=== PATIENT | female | born 1985 | race Caucasian/White ===

== ENCOUNTER 2017-02-03 07:30 | Inpatient (IN) | payer BC ==
[2017-02-03] VITALS (27 sets, daily range): BP systolic 108–175; BP diastolic 56–88; PULSE 68–102; TEMP 98.3–98.7
[~2017-02-03] VITALS: Ht 162.6 cm; Wt 94.1 kg
[~2017-02-03 07:30] MED LIST: FERROUS SU325 MG/TAB PO; INDERAL 20MG20 MG PO; LANOXIN 0.25M0.25 MG PO; MOTRIN 800800 MG/TAB PO; PERCOCET 325 MG1 TA2 PO; PROTONIX20 MG PO
[2017-02-03] MEDS ORDERED: PROTONIX20 MG PO (07:45)
[2017-02-03] MEDS ORDERED: ZOLOFT 50MG50 MG PO (07:45)
[2017-02-03] MEDS ORDERED: PRENATAL1 TA7 PO (07:46)
[2017-02-03 08:32] LABS: BASO # 0.1 (0.0-0.2); BASO % 0.4 % (0.0-2.0); EOS # 0.1 (0.0-0.7); EOS % 0.6 % (0-4.0); GRAN # 7.5 (1.4-6.5); GRAN % 67.4 % (42.2-75.2); HEMOGLOBIN 12.6 g/dl (12.5-16.0); LYMPH # 2.8 (1.2-3.4); LYMPH % 24.9 % (20.0-51.0); MEAN CELL VOLUME 86 fl (80.0-100.0); MEAN CORPUSCULAR HEMOGLOBIN 29 pg (27.0-31.0); MEAN CORPUSCULAR HGB CONC 34 g/dl (33.0-37.0); MEAN PLATELET VOLUME 10.4 fl (7.4-10.4); MONO # 0.7 (0.1-0.6); MONO % 6.1 % (1.7-9.3); PLATELET COUNT 191 K/mm3 (130-400); RED BLOOD COUNT 4.28 M/mm3 (4.10-5.30); REDCELL DISTRIBUTION WIDTH-CV 13.4 % (11.5-14.5); WHITE BLOOD COUNT 11.1 K/mm3 (4.8-10.8)
[2017-02-03 08:36] LABS: HEMATOCRIT 36.7 % (37.0-47.0)
[2017-02-04 08:29] VITALS: BP 119/71; PULSE 87; TEMP 97.8
[2017-02-04] MEDS ORDERED: IBU800 M1 PO (09:57)
== END 2017-02-04 16:50 | disposition home or self-care (01) | DRG 774 ==
LOC: LDRO 07:30 → LDR 08:23 → OB 08:23
PROVIDERS: Student in an Organized Health Care Education/Training Program
PROC: 10E0XZZ Delivery of Products of Conception, External Approach (ICD-10-PCS; principal; 2017-02-03)
DX: O69.89X0 Labor and delivery complicated by other cord complications, not applicable or unspecified (principal); O99.413 Diseases of the circulatory system complicating pregnancy, third trimester; I47.2 Ventricular tachycardia; O77.0 Labor and delivery complicated by meconium in amniotic fluid; Z3A.39 39 weeks gestation of pregnancy; Z37.0 Single live birth
CPT/HCPCS: J2590; J2795; J7120

== ENCOUNTER → 2019-09-14 | Outpatient (CLI) | payer OTHER ==
[~2019-09-14] MED LIST changes: +IBU800 M1 PO; +PRENATAL1 TA7 PO; +ZOLOFT 50MG50 MG PO
== END ==
LOC: COL.VAS 10:03
DX: M79.89 Other specified soft tissue disorders (principal); I83.819 Varicose veins of unspecified lower extremity with pain

== ENCOUNTER → 2020-02-20 | Outpatient (CLI) | payer OTHER ==
[~2020-02-20] MED LIST changes: +IBU600 MG PO; +INDERAL40 MG PO; +IRON 27 MG PO; +PRENATAL MVI PO; +ZOLOFT 100MG100 MG PO
== END ==
LOC: COL.LAB 09:02
DX: Z20.828 Contact with and (suspected) exposure to other viral communicable diseases (principal)

== ENCOUNTER 2020-02-21 01:03 | Inpatient (IN) | payer OTHER ==
[~2020-02-21] VITALS: Ht 162.6 cm; Wt 95.9 kg
[2020-02-21] VITALS (35 sets, daily range): BP systolic 102–136; BP diastolic 50–91; PULSE 72–97; TEMP 98–98.6
[~2020-02-21 01:03] MED LIST changes: -IBU600 MG PO; -INDERAL40 MG PO; -IRON 27 MG PO; -PRENATAL MVI PO; -ZOLOFT 100MG100 MG PO
--- NOTE | 2020-02-21 01:10 | NUR ---
G3L2. 40-1. Pt ambualtory to LDR 4 with spouse. Clean gown on. EFM and TOCO explained and applied. Pt states she has been юлия since 1300 this afternoon and her contractions are 4 minutes apart now. Pt denies LOF. States she did have some light spotting. Reports good movement. Denies any complications. VS completed. SVE /-2. Pt reports going quick in labor once her water is broken with her 2 other girls. Plan of care explained to pt. Pt requesting an epidural when able to get one. 0126: called and updated on pts status. See physican notification. 0142: IV started and labs obtained via IV site. LR boluse infusing without difficulties. Pawel THAKKAR notified of epidural. 0158: Pawel THAKKAR at bedside for epidural placement. Procedure explained to pt. 0203: Single shot administered by Pawel THAKKAR. See anesthesia records. 0210: Pt repositioned to wedge left position. Plan of care and safety precautions explained to pt and spouse who verbalize understanding. Call light within reach.
[2020-02-21 02:04] LABS: BASO # 0.1 (0.0-0.2); BASO % 0.5 % (0.0-2.0); EOS # 0.1 (0.0-0.7); EOS % 0.5 % (0-4.0); GRAN # 10.1 (1.4-6.5); GRAN % 68.6 % (42.2-75.2); HEMOGLOBIN 12.4 g/dl (12.5-16.0); LYMPH # 3.4 (1.2-3.4); MEAN CELL VOLUME 85 fl (80.0-100.0); MEAN CORPUSCULAR HEMOGLOBIN 29 pg (27.0-31.0); MEAN CORPUSCULAR HGB CONC 34 g/dl (33.0-37.0); MEAN PLATELET VOLUME 10.7 fl (7.4-10.4); MONO % 6.8 % (1.7-9.3); PLATELET COUNT 203 K/mm3 (130-400); RED BLOOD COUNT 4.29 M/mm3 (4.10-5.30); REDCELL DISTRIBUTION WIDTH-CV 13.9 % (11.5-14.5)
[2020-02-21 02:06] LABS: HEMATOCRIT 36.5 % (37.0-47.0)
[2020-02-21] MEDS ORDERED: INDERAL40 MG PO (02:24)
[2020-02-21] MEDS ORDERED: ZOLOFT 100MG100 MG PO (02:24)
[2020-02-21] MEDS ORDERED: PRENATAL MVI PO (02:26)
[2020-02-21] MEDS ORDERED: IRON 27 MG PO (02:26)
--- NOTE | 2020-02-21 02:50 | NUR ---
Leonardo catheter inserted without difficulties. Pale yellow, clear urine return noted. SVE /-1. Pericare provided and plan of care explained to pt who verbalizes understanding. Pt repostioned to high vasquezprincess position.
--- NOTE | 2020-02-21 07:50 | NUR ---
Dr. Shah at bedside. AROM per provider SVE mec fluid 10/100/0. Pericare performed. Begins pushing with pt. Moves vertex well. 0800- of viable male attended by Dr. Shah. dried and placed on mother's abdomen. Cord clamped x 2 and cut from umbilicus. Care of to Steven Barrera RN. 0803- of placenta. Pitocin bolus started per protocol. Fundus firm at umbilicus. Bleeding WNL. 1st degree laceration repaired per provider. Pericare performed. Ice pack applied. Pt updated on POC. Bed locked in low position. Call light within reach. No questions or concerns at this time.
[2020-02-22 02:15] VITALS: BP 122/74; PULSE 86; TEMP 98.1
[2020-02-22 08:42] VITALS: BP 137/85; PULSE 85; TEMP 98.5
[2020-02-22] MEDS ORDERED: IBU600 MG PO (09:01)
--- NOTE | 2020-02-22 12:00 | NUR ---
Discharge instructions given, pt verbalizes understanding. No further questions noted. Bands matched and hugs tag removed.
== END 2020-02-22 12:15 | disposition home or self-care (01) | DRG 805 ==
LOC: LDRO 01:03 → OB 01:31 → LDR 01:31 → OB 10:30
PROVIDERS: ADMIT Obstetrics & Gynecology
PROC: 10E0XZZ Delivery of Products of Conception, External Approach (ICD-10-PCS; principal; 2020-02-21)
PROC: 0KQM0ZZ Repair Perineum Muscle, Open Approach (ICD-10-PCS; 2020-02-21)
PROC: 10907ZC Drainage of Amniotic Fluid, Therapeutic from Products of Conception, Via Natural or Artificial Opening (ICD-10-PCS; 2020-02-21)
DX: O99.344 Other mental disorders complicating childbirth (principal); O99.42 Diseases of the circulatory system complicating childbirth; Z37.0 Single live birth; I47.1 Supraventricular tachycardia; O77.0 Labor and delivery complicated by meconium in amniotic fluid; O70.1 Second degree perineal laceration during delivery; F32.9 Major depressive disorder, single episode, unspecified; Z3A.40 40 weeks gestation of pregnancy
CPT/HCPCS: J2590; J2795; J7120